=== PATIENT | female | born 1970 | race Caucasian/White ===

== ENCOUNTER 2017-07-25 11:03 | Emergency (ER) | payer OTHER ==
[2017-07-25] MEDS: IBUPROFEN 600 MG TAB PO (11:48)
== END 2017-07-25 13:18 | disposition home or self-care (01) ==
LOC: FTE 11:03
DX: J20.9 Acute bronchitis, unspecified (principal); I10 Essential (primary) hypertension
CPT/HCPCS: 71045; 87400; 99284-25